=== PATIENT | female | born 1965 | race Caucasian/White ===

== ENCOUNTER 2019-01-10 14:56 | Inpatient (IN) | payer MEDICAID ==
[~2019-01-10] VITALS: Ht 160 cm; Wt 66.5 kg
[~2019-01-10 14:56] MED LIST: DOCU-144 PO; OXYC-279 PO; Work Note
[2019-01-10] MEDS ORDERED: PIPER-TAZO 3.375 GM IV (PMX) 100 ML IVPB STA (18:18)
[2019-01-10] MEDS ORDERED: SOD CHLORIDE 0.9% 1,000 ML IV STA (18:18)
[2019-01-10] MEDS ORDERED: SOD CHLORIDE 0.9% 1,000 ML IV SCH (19:46)
[2019-01-10] MEDS ORDERED: ACETAMINOPHEN 325 MG TAB PO PRN ×2 (20:00→23:00)
[2019-01-10] MEDS ORDERED: DOCUSATE SODIUM 100 MG CAP PO PRN (20:00)
[2019-01-10] MEDS ORDERED: NACL 0.9% 3 ML SYG IV SCH (20:00)
[2019-01-10] MEDS ORDERED: morphine 2 MG INJ IV PRN ×2 (20:00→23:00)
[2019-01-10] MEDS ORDERED: BISACODYL (EC) 5 MG TAB PO PRN (20:00)
[2019-01-10] MEDS ORDERED: ONDANSETRON 4 MG INJ IV PRN ×2 (20:00→23:00)
[2019-01-10] MEDS ORDERED: morphine 4 MG/ML VIAL IV STA (20:25)
[2019-01-10] MEDS ORDERED: LIDOCAINE 1% (MPF) 30 ML INJ ONE (21:44)
[2019-01-10] MEDS ORDERED: BUPIVACAINE 0.5% (SDV) 30 ML INJ ONE (21:45)
[2019-01-10] MEDS ORDERED: LIDOCAINE 1%/EPI (1:100,000) (MDV) 20 ML ONE (21:46)
[2019-01-10] MEDS ORDERED: SEVOFLURANE 15 MIN ONE (22:30)
[2019-01-10] MEDS ORDERED: MIDAZOLAM 1 MG/ML 2 ML INJ ONE (22:37)
[2019-01-10] MEDS ORDERED: D5W-0.45 NACL + KCL 20 MEQ 1,000 ML IV SCH (22:42)
[2019-01-10] MEDS ORDERED: HYDROCODONE/APAP (5/325) TAB PO PRN (23:00)
[2019-01-10] MEDS ORDERED: IBUPROFEN 600 MG TAB PO PRN (23:00)
[2019-01-10] MEDS ORDERED: LIDOCAINE 2% (SDV) 5 ML INJ ONE (23:05)
[2019-01-10] MEDS ORDERED: PROPOFOL 20 ML ONE (23:05)
[2019-01-10] MEDS ORDERED: NEOSTIGMINE 3 MG/3 ML SYRINGE ONE ×2 (23:05→23:26)
[2019-01-10] MEDS ORDERED: GLYCOPYRROLATE 0.4 MG INJ ONE ×2 (23:05→23:26)
[2019-01-10] MEDS ORDERED: ROCURONIUM 50 MG INJ ONE (23:05)
[2019-01-10] MEDS ORDERED: ONDANSETRON 4 MG INJ ONE (23:06)
[2019-01-10] MEDS ORDERED: ROPIVACAINE 0.5 % 30 ML VIAL ONE (23:06)
[2019-01-10] MEDS ORDERED: SUGAMMADEX SODIUM 200 MG/2 ML VIAL IV ONE (23:06)
[2019-01-10 23:35] VITALS: BP 115/68; PULSE 70; RESP 13
[2019-01-10 23:40] VITALS: BP 107/72; PULSE 68; RESP 15
[2019-01-10 23:45] VITALS: BP 113/68; PULSE 74; RESP 19
[2019-01-10 23:50] VITALS: BP 108/67; PULSE 82; RESP 21
[2019-01-10 23:55] VITALS: BP 123/66; PULSE 80; RESP 19
[2019-01-11] VITALS (9 sets, daily range): BP systolic 102–127; BP diastolic 55–72; PULSE 67–85; RESP 13–25; Ht 160 cm; Wt 66.5 kg
[2019-01-11] MEDS ORDERED: HYDROmorphONE 1 MG/5 ML IV SYRINGE IV PRN ×2
[2019-01-11] MEDS ORDERED: PIPER-TAZO 3.375 GM IV (PMX) 100 ML IVPB SCH
[2019-01-11] MEDS ORDERED: KETOROLAC 30 MG INJ IV PRN
[2019-01-11] MEDS ORDERED: MEPERIDINE 25 MG INJ IV PRN
[2019-01-11] MEDS ORDERED: ONDANSETRON 4 MG INJ IV PRN
[2019-01-11] MEDS ORDERED: METOCLOPRAMIDE 10 MG INJ IV PRN
[2019-01-11] MEDS ORDERED: DIPHENHYDRAMINE 50 MG INJ IV PRN
[2019-01-11] MEDS ORDERED: FENTAnyl 50 MCG/ML VIAL IV PRN
[2019-01-11] MEDS ORDERED: ZOLPIDEM 5 MG TAB PO PRN (01:00)
[2019-01-11] MEDS: PIPER-TAZO 3.375 GM IV (PMX) 100 ML IVPB SCH ×3 (01:04→12:14)
[2019-01-11] MEDS ORDERED: ENOXAPARIN 40 MG/0.4 ML SYG SC SCH (07:00)
== END 2019-01-11 16:00 | disposition home or self-care (01) | DRG 343 ==
LOC: E/R 14:56 → REC 19:51 → CANRESERV 21:38 → MS1 01-11 00:30
PROVIDERS: ADMIT Family Medicine; ATTEND Family Medicine
PROC: 0DTJ4ZZ Resection of Appendix, Percutaneous Endoscopic Approach (ICD-10-PCS; principal; 2019-01-10 23:00)
DX: K35.80 Unspecified acute appendicitis (principal)
CPT/HCPCS: 36415; 71045; 74176; 80053; 81001; 83690; 83735; 84703; 85025; 85610; 85730; 88304; 93005; 96374; J1650; J2250; J2405; J2543; J2710; J2795; J3010; J3480; J7030